=== PATIENT | female | born 1965 | race Caucasian/White ===

== ENCOUNTER → 2019-12-11 10:37 | Outpatient (BNVA) | payer BC, SELFPAY | PROVIDERS: Family Provider Nurse Practitioner Family; PCP Nurse Practitioner Family; Visit Provider Internal Medicine Rheumatology | DX: M31.6 Other giant cell arteritis (principal); Z79.899 Other long term (current) drug therapy; M79.7 Fibromyalgia | CPT/HCPCS: 99214 ==

== ENCOUNTER → 2020-02-13 08:15 | Outpatient (BNVA) | payer BC, SELFPAY | PROVIDERS: Family Provider Nurse Practitioner Family; PCP Nurse Practitioner Family; Visit Provider Internal Medicine Rheumatology | DX: R53.83 Other fatigue (principal); Z79.899 Other long term (current) drug therapy | CPT/HCPCS: 80061; 80076; 82565; 84439; 84443; 85025; 85651; 86140 ==

== ENCOUNTER → 2020-05-06 09:25 | Outpatient (BNVA) | payer BC, SELFPAY | PROVIDERS: Family Provider Nurse Practitioner Family; PCP Nurse Practitioner Family; Visit Provider Nurse Practitioner Family | DX: Z79.899 Other long term (current) drug therapy (principal); E03.9 Hypothyroidism, unspecified; R53.83 Other fatigue; H66.90 Otitis media, unspecified, unspecified ear; J32.9 Chronic sinusitis, unspecified; R05 Cough; Z12.31 Encounter for screening mammogram for malignant neoplasm of breast; E78.2 Mixed hyperlipidemia | CPT/HCPCS: 80053; 80061; 81001; 82306; 83036; 84443; 85025; 85651; 86140 ==

== ENCOUNTER → 2020-06-03 11:17 | Outpatient (BNVA) | payer BC, SELFPAY | PROVIDERS: Family Provider Nurse Practitioner Family; PCP Nurse Practitioner Family; Visit Provider Internal Medicine Rheumatology | DX: M31.5 Giant cell arteritis with polymyalgia rheumatica (principal); Z79.899 Other long term (current) drug therapy; H26.9 Unspecified cataract; M79.7 Fibromyalgia; J32.9 Chronic sinusitis, unspecified; R53.82 Chronic fatigue, unspecified; Z87.891 Personal history of nicotine dependence | CPT/HCPCS: 99214 ==

== ENCOUNTER 2020-06-30 10:03 | Outpatient (CLI) | payer BC, SELFPAY ==
--- NOTE | 2020-06-30 10:30 | MM_ITS ---
WS: [id number] BILATERAL DIGITAL SCREENING MAMMOGRAPHY WITH CAD CLINICAL INFORMATION: need for annual exam HISTORY: Screening mammogram. No current complaints. COMPARISON: November 28, 2018 TECHNIQUE: Bilateral CC and MLO views. FINDINGS: Scattered fibroglandular densities bilaterally. No suspicious focal mass, asymmetry, calcifications, or architectural distortion. No evidence of malignancy. Dense tissue subareolar left breast unchanged . MM/[place] [id number] IMPRESSION: BI-RADS: 2-Benign FOLLOW UP: 1 Year Follow-up Recommend return to annual screening mammography.
== END 2020-06-30 10:04 | disposition home or self-care (01) ==
LOC: RADSHAW 10:07
PROVIDERS: PCP Nurse Practitioner Family; Visit Provider Nurse Practitioner Family
DX: Z12.31 Encounter for screening mammogram for malignant neoplasm of breast (principal)
CPT/HCPCS: 77067

== ENCOUNTER → 2020-08-03 10:10 | Outpatient (BNVA) | payer BC, SELFPAY | PROVIDERS: PCP Nurse Practitioner Family; Visit Provider Nurse Practitioner Family | DX: Z11.59 Encounter for screening for other viral diseases (principal) | CPT/HCPCS: 87635 ==

== ENCOUNTER → 2020-09-28 10:37 | Outpatient (BNVA) | payer BC, SELFPAY | PROVIDERS: PCP Nurse Practitioner Family; Visit Provider Nurse Practitioner Family | DX: Z79.899 Other long term (current) drug therapy (principal) | CPT/HCPCS: 80076; 82565; 85025; 85651; 86140 ==

== ENCOUNTER → 2020-10-08 10:04 | Outpatient (BNVA) | payer BC, SELFPAY | PROVIDERS: PCP Nurse Practitioner Family; Visit Provider Internal Medicine Rheumatology | DX: M31.5 Giant cell arteritis with polymyalgia rheumatica (principal); M79.7 Fibromyalgia; Z79.899 Other long term (current) drug therapy; M54.31 Sciatica, right side; H26.9 Unspecified cataract; Z87.891 Personal history of nicotine dependence | CPT/HCPCS: 99214 ==

== ENCOUNTER 2020-11-25 11:42 | Outpatient (CLI) | payer BC, SELFPAY ==
--- NOTE | 2020-11-25 11:49 | XR_ITS ---
WS: [id number] LATERAL LUMBAR SPINE: 3 view. Lateral radiographs are performed in upright neutral, flexion and extension to the patient's toleranc e. HISTORY: S39.012A - Strain of muscle, fascia and tendon of lower back, initial encounter COMPARISON: None available. Normal posterior alignment. Mild osteopenia. Disc spaces are preserved. No fracture. Mild facet joint arthritis at L4-5 and L5-S1. With flexion and extension no lumbar spine instability. XR/XR lumbar spine min 4V [id number] IMPRESSION: No lumbar spine instability.
== END 2020-11-25 11:43 | disposition home or self-care (01) ==
LOC: RADWPI 11:46
PROVIDERS: PCP Nurse Practitioner Family; Visit Provider Nurse Practitioner Family
DX: S39.012A Strain of muscle, fascia and tendon of lower back, initial encounter (principal); X58.XXXA Exposure to other specified factors, initial encounter
CPT/HCPCS: 72114

== ENCOUNTER 2020-12-01 06:00 | Outpatient (RCR) | payer BC, SELFPAY | END 2020-12-27 23:59 | disposition home or self-care (01) | LOC: WPT 06:00 | PROVIDERS: PCP Nurse Practitioner Family; Referring Provider Nurse Practitioner Family; Visit Provider Nurse Practitioner Family | DX: M54.5 Low back pain (principal) | CPT/HCPCS: 97110; 97161; G0283 ==

== ENCOUNTER 2020-12-04 09:35 | Emergency (ER) | payer BC, SELFPAY ==
[2020-12-04 09:41] VITALS: BP 126/75; PULSE 89; RESP 18; TEMP 36.1; O2SAT 100; BMI 30.2
[2020-12-04 09:46] VITALS: O2SAT 98
--- NOTE | 2020-12-04 09:49 | CT_ITS ---
WS: [id number] CT CERVICAL SPINE HISTORY: trauma TECHNIQUE: Contiguous 2.5 mm axial imaging performed through the entire cervical spine. Sagittal and coronal reformats also performed. All CT scans at [facility] use at least one of these do se optimization techniques: automated exposure control; mA and/or kV adjustment per patient size (inc ludes targeted exams where dose is matched to clinical indication); or iterative reconstruction. DLP: 456.27 mGy.cm COMPARISON: None available. Normal cervical alignment. Craniocervical junction, atlantodental interval and C1-C2 alignment is nor mal. Mild disc space narrowing at C5-6. No significant stenosis or acute disc herniations. There are several foci of air in the soft tissues of the RIGHT neck along the inferior margin of the RIGHT submandibular gland. Air is closely associated but does appear separate from the carotid artery . There is no soft tissue hematoma or active bleeding identified. Enlarged LEFT thyroid the thyroid nodule measuring 2.5 x 1.8 cm. Visualized upper lungs are clear. CT/CT cervical spin wo con* [id number] IMPRESSION: 1. No cervical spine fracture. 2. Numerous foci of air in the soft tissues adjacent to the inferior RIGHT sub mandibular gland likely from the recent injury. No active extravasation or torres tid injury confirmed. No compromise of the airway.
--- NOTE | 2020-12-04 09:49 | CT_ITS ---
WS: [id number] CT CHEST, ABDOMEN AND PELVIS WITH IV CONTRAST. HISTORY: trauma TECHNIQUE: Contiguous 5 mm axial imaging performed through the chest, abdomen and pelvis with IV cont rast, oral contrast has been provided. Coronal and sagittal reformats chest. Coronal and sagittal ref ormats through the abdomen and pelvis. All CT scans at [facility] use at least one of the se dose optimization techniques: automated exposure control; mA and/or kV adjustment per patient size (includes targeted exams where dose is matched to clinical indication); or iterative reconstruction. CONTRAST: Omnipaque 300; 95 mL IV. DLP: 1562.0 mGy.cm COMPARISON: None available. Chest CT: Lungs are clear. No pulmonary contusion or nodules. No laceration or pneumothorax. Normal-s ized thoracic aorta and pulmonary artery. No aortic dissection or injury. No mediastinal or hilar inj ury or hematoma. No mediastinal air. Normal esophagus. Clavicles are intact. No thoracic spine fractu re or injury. Nondisplaced posterior RIGHT T11 remote rib fracture with partial healing. No acute rib fracture. No soft tissue injury. Normal heart with no pericardial effusion. No pleural effusion. Abdomen CT: Prior cholecystectomy. Liver, spleen, pancreas, adrenals and kidneys are negative. No mes enteric hematoma. Visualized GI tract are tract is negative. No obstruction. No adenopathy or fluid. There is a small amount of stranding in the soft tissues over the LEFT abdominal wall which may be fr om the trauma or subcutaneous injection sites. Prior appendectomy. Pelvic CT: No free fluid in the pelvis. Urinary bladder is well distended. No adenopathy. Prior hyste rectomy. CT/CT chest abd pel w con* IMPRESSION: 1. No pulmonary contusion or pneumothorax. 2. Small amount of induration in the LEFT abdomen subcutaneous soft tissue. T his may be from the recent trauma or prior injection sites. 3. No mesenteric injury hematoma identified. 4. No acute fractures. 5. No visceral organ injury.
--- NOTE | 2020-12-04 09:49 | CT_ITS ---
WS: [id number] CT HEAD NONCONTRAST HISTORY: trauma TECHNIQUE: Contiguous axial imaging performed through the brain in 2.5 mm imaging. Bone and soft tiss ue windows. Sagittal and coronal reformats reviewed. All CT scans at [facility] use at ast one of these dose optimization techniques: automated exposure control; mA and/or kV adjustment pe r patient size (includes targeted exams where dose is matched to clinical indication); or iterative r econstruction. DLP: 722.83 mGy.cm COMPARISON: None available. No acute intracranial hemorrhage, midline shift or mass effect. No atrophy or prior infarcts or herniation. Ventricles: Normal size with no hydrocephalus. Paranasal sinuses: As visualized are clear. Mastoid air cells: Well pneumatized. Calvarium and scalp: Skull is intact with no soft tissue edema or swelling. CT/CT head wo con* [id number] IMPRESSION: Negative head CT.
--- NOTE | 2020-12-04 09:50 | ECG_ITS ---
[facility] Test Date: 2020-12-04 Pat Name: Rain Caballero Department: Room: Gender: Female Sole Dyer: : 1965 Requested By: Gabriel Mccoy Order Number: [id number] Yovany MD: Eliseo Triplett M.D. Measurements Intervals [place] Rate: 68 P: 51 CA: 153 QRS: 37 QRSD: 88 T: 49 QT: 377 QTc: 403 Interpretive Statements SINUS RHYTHM No previous ECG available for comparison Electronically Signed On 12-05-2020 10:58:45 [employer] INTELLIGENCE OFFICER by Eliseo Triplett M.D. [id number]
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
--- NOTE | 2020-12-04 09:58 | XR_ITS ---
WS: [id number] Right forearm, AP and lateral views, 12/04/2020 Clinical Data: trauma Comparison: None. Findings: No fractures or dislocations are seen. The soft tissues are normal. The visualized left wrist and elb ow show no obvious abnormalities. There is an intravenous catheter overlying the distal right forearm. XR/XR forearm RT 2V [id number] Impression: Negative for fracture.
--- NOTE | 2020-12-04 09:58 | XR_ITS ---
WS: [id number] Right arm and humerus, 3 views, 12/04/2020 Clinical Data: trauma Comparison: None. Findings: No fractures or dislocations are seen. The shaft of the humerus is intact. The soft tissues are norm al. XR/[place] [id number] Impression: Negative right arm and humerus.
[2020-12-04] MEDS: morphine 4 mg/mL SDV 1 mL 2 MG IVP (10:02)
[2020-12-04] MEDS: ondansetron 2 mg/ML SDV 2 mL 4 MG IVP (10:02)
[2020-12-04 10:03] VITALS: BP 112/85; PULSE 74; RESP 21; O2SAT 100
--- NOTE | 2020-12-04 10:06 | PC.NURSE ---
pt to ct scan by stretcher with tech
[2020-12-04 10:09] LABS: Basophils # 0.1 10^3/uL (0.0-0.1); Basophils % 0.8 %; Eosinophils # 0.3 10^3/uL (0.0-0.8); Eosinophils % 3.9 %; Hemoglobin 13.7 g/dL (11.5-15.3); Lymphocytes # 1.6 10^3/uL (0.8-4.8); Lymphocytes % 25.2 %; Mean Corpuscular HGB Conc 34.3 g/dL (30.0-36.0); Mean Corpuscular Hemoglobin 31.1 pg (28.0-34.0); Mean Corpuscular Volume 90.9 fL (81-99); Mean Platelet Volume 11.5 fL (7.4-10.4); Monocytes # 0.5 10^3/uL (0.2-0.9); Monocytes % 7.8 %; Neutrophils # 3.97 10^3/uL (1.8-7.7); Neutrophils % 62.1 %; Nucleated Red Blood Cells % 0 %; Platelet Count 228 10^3/cmm (130-400); White Blood Count 6.4 10^3/uL (4.0-10.0)
[2020-12-04] MEDS: iohexol 300 mg/mL 100 mL Btl IV (10:17)
[2020-12-04 10:25] LABS: Alanine Aminotransferase 27 U/L (0-33); Albumin Level 4.4 g/dL (3.5-5.2); Alkaline Phosphatase 51 IU/L (35-105); Aspartate Amino Transferase 23 U/L (0-32); Blood Urea Nitrogen 20 mg/dL (6-20); Calcium 9.5 mg/dL (8.5-10.5); Carbon Dioxide 25 mmol/L (22-29); Chloride 106 mmol/L (98-107); Globulin 2.7 g/dL (1.3-4.6); Glucose 96 mg/dL (65-115); Osmolality Calculated 292 mOsm/kg (285-295); Sodium 140 mmol/L (136-145); Total Bilirubin 0.3 mg/dL (0.15-1.2); Total Protein 7.1 g/dL (6.6-8.7)
[2020-12-04] MEDS: tetanus-dipt-pertussis 0.5 mL SDV IM (10:57)
[2020-12-04 11:22] VITALS: BP 121/61; PULSE 64; RESP 17; O2SAT 99
[2020-12-04 11:31] LABS: Add Urine Microscopic? NO
[2020-12-04 11:56] LABS: Bilirubin Urine Neg (Negative); Blood Urine Neg (Negative); Glucose Urine UA Norm (Normal); Ketones Urine Negative (Negative); Leukocyte Esterase Urine Negative (Negative); Nitrate Urine Negative (Negative); Protein Urine Neg (Negative); Specific Gravity, Urine 1.005 (1.005-1.030); Urine Appearance Clear (CLEAR); Urine Color Yellow (Yellow); Urobilinogen Urine Norm (Negative); pH Urine 7 (5-7)
[2020-12-04 12:25] VITALS: BP 120/61; PULSE 65; RESP 16; O2SAT 99
[2020-12-04] MEDS: HYDROcodone-acetaminophen 5-325 mg Tablet 1 TAB PO (12:37)
== END 2020-12-04 12:35 | disposition home or self-care (01) ==
PROVIDERS: Emergency Provider Family Medicine; PCP Nurse Practitioner Family
DX: S09.93XA Unspecified injury of face, initial encounter (principal); S39.93XA Unspecified injury of pelvis, initial encounter; W55.29XA Other contact with cow, initial encounter; E78.2 Mixed hyperlipidemia; Z87.891 Personal history of nicotine dependence; Z23 Encounter for immunization
CPT/HCPCS: 12345; 70450; 71260; 72125; 73060; 73090; 74177; 80053; 81003; 83605; 85025; 86850; 86900; 90471; 90715; 93005; 96374; 96375; 99283; 99284; 99291; J2270; J2405; Q9967

== ENCOUNTER 2020-12-25 16:18 | Outpatient (CLI) | payer BC, SELFPAY ==
--- NOTE | 2020-12-25 16:45 | MR_ITS ---
WS: [id number] MRI LUMBAR SPINE NONCONTRAST TECHNIQUE: Sagittal T1, T2 and STIR imaging. Axial T1 and T2 imaging. CLINICAL INFORMATION: M54.10 - Radiculopathy, site unspecified COMPARISON: None. FINDINGS: Mild lumbar curve. No acute compression. No high-grade central canal stenosis. A few incidental Schmo rl's nodes in the lower thoracic and upper lumbar spine. L1-L2: Normal. L2-L3: No significant disc bulging. Spinal canal and foramen are patent. Mild facet arthropathy. L3-L4: No significant disc bulging. Mild facet arthropathy. Spinal canal and foramen are patent. L4-L5: Mild annular bulging with slight narrowing of the left subarticular recess. Slight encroachmen t traversing left L5 nerve root. Mild left and no right foraminal narrowing. Mild facet arthropathy. L5-S1: Mild annular bulging with a tiny annular fissure. Tiny shallow central protrusion. Slight effa cement of ventral thecal sac. Spinal canal and foramen are patent. Mild facet arthropathy. Visualized pelvic bony structures: Normal. Paravertebral soft tissues: Normal. 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 MR/MR lumbar spine wo con* [id number] IMPRESSION: 1. Mild lumbar curve. No acute compression. No high-grade central canal stenos is. 2. Mild annular bulging L4-5 with slight narrowing of the left subarticular re cess and encroachment traversing left L5 nerve root. Mild left L4-5 foraminal n arrowing. 3. Tiny central disc protrusion L5-S1 with a tiny annular fissure. Spinal christine l and foramen are patent. 4. Mild facet arthropathy L3-L5.
== END 2020-12-25 16:19 | disposition home or self-care (01) ==
PROVIDERS: PCP Nurse Practitioner Family; Visit Provider Nurse Practitioner Family
DX: M54.10 Radiculopathy, site unspecified (principal); M47.816 Spondylosis without myelopathy or radiculopathy, lumbar region; M51.27 Other intervertebral disc displacement, lumbosacral region
CPT/HCPCS: 72148

== ENCOUNTER 2020-12-28 06:00 | Outpatient (RCR) | payer BC, SELFPAY | END 2021-01-27 23:59 | disposition home or self-care (01) | LOC: WPT 06:00 | PROVIDERS: PCP Nurse Practitioner Family; Referring Provider Nurse Practitioner Family; Visit Provider Nurse Practitioner Family | DX: M54.10 Radiculopathy, site unspecified (principal); M47.816 Spondylosis without myelopathy or radiculopathy, lumbar region | CPT/HCPCS: 97110; G0283 ==

== ENCOUNTER → 2021-01-13 11:48 | Outpatient (BNVA) | payer BC, SELFPAY | PROVIDERS: PCP Nurse Practitioner Family; Visit Provider Family Medicine | DX: M19.90 Unspecified osteoarthritis, unspecified site (principal); R60.9 Edema, unspecified; Z87.39 Personal history of other diseases of the musculoskeletal system and connective tissue; M54.10 Radiculopathy, site unspecified | CPT/HCPCS: 36415; 85651; 86160; 86162; 86235; 86255; 86376 ==

== ENCOUNTER → 2021-01-26 11:37 | Outpatient (BNVA) | payer BC, SELFPAY | PROVIDERS: PCP Nurse Practitioner Family; Visit Provider Family Medicine | DX: E03.8 Other specified hypothyroidism (principal); E03.9 Hypothyroidism, unspecified; M19.90 Unspecified osteoarthritis, unspecified site; M54.10 Radiculopathy, site unspecified | CPT/HCPCS: 84443; 86431 ==

== ENCOUNTER → 2021-03-22 09:37 | Outpatient (BNVA) | payer BC, SELFPAY | PROVIDERS: PCP Nurse Practitioner Family; Visit Provider Internal Medicine Rheumatology | DX: M31.5 Giant cell arteritis with polymyalgia rheumatica (principal); M79.7 Fibromyalgia; Z79.899 Other long term (current) drug therapy; H02.409 Unspecified ptosis of unspecified eyelid; Z87.891 Personal history of nicotine dependence | CPT/HCPCS: 99214 ==

== ENCOUNTER → 2021-03-31 15:00 | Outpatient (BNVA) | payer BC, SELFPAY | PROVIDERS: PCP Nurse Practitioner Family; Referring Provider Family Medicine; Visit Provider Specialist | DX: M65.30 Trigger finger, unspecified finger (principal) | CPT/HCPCS: 73130 ==

== ENCOUNTER 2021-04-07 14:09 | Outpatient (CLI) | payer BC, SELFPAY ==
[2021-04-07 15:46] LABS: Basophils # 0.1 10^3/uL (0.0-0.1); Eosinophils # 0.2 10^3/uL (0.0-0.8); Eosinophils % 3.4 %; Hematocrit 41.5 % (37.0-47.0); Hemoglobin 14.3 g/dL (11.5-15.3); Lymphocytes % 41.1 %; Mean Corpuscular HGB Conc 34.5 g/dL (30.0-36.0); Mean Corpuscular Hemoglobin 30.4 pg (28.0-34.0); Mean Corpuscular Volume 88.1 fL (81-99); Mean Platelet Volume 12.3 fL (7.4-10.4); Monocytes # 0.5 10^3/uL (0.2-0.9); Monocytes % 10.3 %; Neutrophils # 2.18 10^3/uL (1.8-7.7); Neutrophils % 44.2 %; Nucleated Red Blood Cells % 0 %; Platelet Count 234 10^3/cmm (130-400); Red Blood Count 4.71 10^6/uL (4.1-5.3); White Blood Count 4.9 10^3/uL (4.0-10.0)
[2021-04-07 15:55] LABS: Alanine Aminotransferase 42 U/L (0-33); Albumin Level 4.6 g/dL (3.5-5.2); Alkaline Phosphatase 62 IU/L (35-105); Aspartate Amino Transferase 29 U/L (0-32); C Reactive Protein 0.3 mg/L (0.0-4.9); Creatine Phosphokinase 65 U/L (26-192); Globulin 3.2 g/dL (1.3-4.6); Total Bilirubin 0.3 mg/dL (0.15-1.2); Total Protein 7.8 g/dL (6.6-8.7)
[2021-04-07 20:43] LABS: Free T4 Free Thyroxine 1.42 ng/dL (0.82-1.77)
[2021-04-08 12:53] LABS: Aldolase 3.7 U/L (< OR = 8.1)
[2021-04-18 00:03] LABS: Acetylcholine Receptor Binding <0.30 nmol/L
== END 2021-04-07 14:10 | disposition home or self-care (01) ==
LOC: LAB 14:26
PROVIDERS: PCP Nurse Practitioner Family; Visit Provider Internal Medicine Rheumatology
DX: M31.5 Giant cell arteritis with polymyalgia rheumatica (principal); M62.89 Other specified disorders of muscle; Z79.899 Other long term (current) drug therapy
CPT/HCPCS: 36415; 80076; 82085; 82550; 82565; 83519; 84439; 85025; 86140

== ENCOUNTER → 2021-04-09 15:49 | Outpatient (BNVA) | payer BC, SELFPAY | PROVIDERS: PCP Nurse Practitioner Family; Visit Provider Specialist | DX: Z20.822 Contact with and (suspected) exposure to COVID-19 (principal) | CPT/HCPCS: 87635 ==

== ENCOUNTER 2021-04-13 05:24 | Day surgery (SDC) | payer BC, SELFPAY ==
[2021-04-12 10:47] VITALS: BMI 29.7
[2021-04-13 06:30] VITALS: BP 120/75; PULSE 74; RESP 18; TEMP 36.2; O2SAT 99
[2021-04-13] MEDS: acetaminophen 1,000 MG/100 ML PIGGYBACK 400 MG IV (06:42)
[2021-04-13] MEDS: sodium chloride 0.9% 1,000 ML 30 ML IV (06:43)
--- NOTE | 2021-04-13 06:46 | P.HPUD_ITS ---
Surgery/Procedure H&P Update DATE OF PROCEDURE: April 13, 2021 DATE H&P PERFORMED: 03/31/21 H&P UPDATE INFORMATION: I have reviewed H&P completed within last 30 days, I have examined patient prior to procedure, Changes to prior documentation as noted here and H&P is in [facility] EMR on date indicated CHANGES TO PREVIOUS DOCUMENTATION: Hydrocodone for back issues. PREOP DIAGNOSIS: Right Ring Trigger Finger PRIMARY INDICATION FOR PROCEDURE: Same PLANNED PROCEDURE: Operation Date: 04/13/21 07:00 Proposed Procedures p Trigger Finger Release [id number] M65.30(Right) - Nancy Delgado MD Related Problem List Diagnoses (1) Acquired trigger finger of right ring finger:
[2021-04-13 07:00] LABS: Anion Gap 11.9 (5-19); Blood Urea Nitrogen 17 mg/dL (6-20); Calcium 8.8 mg/dL (8.5-10.5); Carbon Dioxide 26 mmol/L (22-29); Chloride 108 mmol/L (98-107); Glomerular Filtration Rate 87.5 mL/min (90-130); Glucose 98 mg/dL (65-115); Osmolality Calculated 296 mOsm/kg (285-295); Potassium 3.9 mmol/L (3.5-5.1); Sodium 142 mmol/L (136-145)
--- NOTE | 2021-04-13 07:00 | ANES.PREANE2 ---
Pre-Anesthetic Assessment Pre-Anesthetic Assessment: Height/Weight: Height 1.52 m Weight 68.946 kg Temp Pulse Resp BP Pulse Ox 97.1 F L 74 18 120/75 99 04/13/21 06:30 04/13/21 06:30 04/13/21 06:30 04/13/21 06:30 04/13/21 06:30 Preop Diagnosis: Right Ring Trigger Finger Proposed Procedure: Operation Date: 04/13/21 07:00 Proposed Procedures p Trigger Finger Release [id number] M65.30(Right) - Nancy Delgado MD Was Beta Antwon taken within 24 hours: N/A Was Clonidine taken within 24 hours: N/A Last intake: Intake Last Liquid Date 04/12/21 Last Liquid Time 22:30 Last Solid Date 04/12/21 Last Solid Time 22:30 Social: Social History: No alcohol and No tobacco Exam: Pre-Anes Outpt Exam: alert, oriented x 3, clear to auscultation bilaterally and regular rate & rhythm Airway: Submandibular: WNL Cervical ROM: WNL MP: 2 Dentition: Full CV/HEM: CV/HEM: HTN GI: GI: GERD Metabolic: Metabolic: Thyroid Comments: Temporal arteritis, chronic steroid Musc/skel: Musc/skel: Lower Back Pain Anesthetic Plan: ASA status: 3 Anesthesia: MAC and Regional (specify below) (Harsha Tobar) Risk of > 500 ml blood loss (7ml/kg in children): No Meds/Allergies Current Medications: Current Medications Generic Name Dose Route Start Last Admin Trade Name Freq PRN Reason Stop Dose Admin Sodium Chloride 1,000 mls @ 30 ml s/hr 04/13/21 06:15 04/13/21 06:43 Sodium Chloride 0.9% IV 04/14/21 06:14 30 mls/hr .Q24H CHRISTOPHER Administration PFSH Anesthesia PFSH: Medical History Allergic rhinitis Anxiety Back pain with right-sided radiculopathy Cataracts, bilateral Drooping eyelid Fatigue Fibromyalgia Giant cell arteritis with polymyalgia rheumatica High risk medication use Hypothyroid Hypothyroidism Immunization counseling Immunosuppression detention current use of diuretic Medication management Mixed hyperlipidemia Other assisted (current) drug therapy Otitis media Plaque psoriasis Sinusitis Vitamin D deficiency, unspecified Surgical History History of appendectomy History of hysterectomy including cervix History of hysterectomy with bilateral oophorectomy Hx of cholecystectomy Family History Other CAD (coronary artery disease) Cancer Diabetes Hypertension Lung disease Rheumatoid arthritis Stroke Denies family history of Chronic kidney disease (CKD) Systemic lupus erythematosus (SLE) in adult Social History Smoking and tobacco status: former smoker Alcohol intake: unknown Lives independently: No Household members: spouse Marital status: Single History of recent travel: No Data Anesthesia CBC & Chem 7: 04/13/21 06:25 Other Labs: Laboratory Results - last 48 hr 04/13/21 06:25 Sodium 142 Potassium 3.9 Carbon Dioxide 26 Anion Gap 11.9 BUN 17 Creatinine 0.7 Glucose 98 Calcium 8.8 Cardiac Studies: No Data to Display
[2021-04-13 07:41] VITALS: BP 130/65; PULSE 75; RESP 16; TEMP 36.3; O2SAT 99
--- NOTE | 2021-04-13 07:41 | PM.OP ---
Operative Report Date of procedure: April 13, 2021 Pre-op Diagnosis: Right Ring Trigger Finger Post-op diagnosis: same Post-op Findings: Thickened synovium with ring finger triggering Procedure Done: Right ring trigger finger release Implants: None Specimens removed/disposition: None Pathology: none sent Surgeon: Nancy Delgado Cnc Wood Lathe Operator: None Anesthesia: MAC (With [place] block, ASA 2) Estimated blood loss (mL): 2 Tourniquet time (min): 24 IV fluids (mL): 300 Urine output (mL): 0 Urine output: No Aleman Complications: None Findings: Thickened synovium and A1 marj Condition: stable Disposition: PACU (Then to same-day surgery for discharge home) Brief History: This 55-year-old woman presented with complaints of pain in her right palm at the base of the ring finger. She also describes triggering of the ring finger digit with range of motion. After discussion, the patient wished to proceed with operative intervention in the form of a trigger finger release. Risks and complications were discussed with her and consents were signed. Procedure: Patient was brought to the operating theater. She was placed on the operating room table. A [place] block was administered without difficulty. Patient tolerated it well. The patient was given Ancef 2 g prophylactically. A tourniquet was placed high on the arm and was elevated for the Harsha block. This followed exsanguination of the arm. Tourniquet time was 24 minutes. Surgical pause was performed prior to commencement of the surgical procedure. At the time of the surgical pause we identified the site and side of surgery. We also identified the patient's identity and appropriate administration of IV antibiotics. Following the surgical pause, an incision was made along the distal palmar crease beneath the ring finger. Dissection continued through the skin to the subcutaneous tissues using a scalpel. Blunt dissection was then utilized to spread soft tissues and allow access to the A1 marj. The A1 marj was identified. It was then incised longitudinally and sharply using a knife. This was accomplished without difficulty and atraumatically. Once the A1 marj was released, tendons were brought up out of the wound and evaluated. There were no gross masses on the tendons. Tendons were returned to normal position. We then irrigated the wound and subsequently closed it with 3-0 nylon with an interrupted mattress type suture. Following closure of the wound, the wound was injected with 1% lidocaine plain into the subcutaneous tissues as a local anesthetic. Sterile dressing was then placed consisting of Tegaderm, fluffed fluffs, sterile soft roll, and an Hammad wrap. The patient was returned to recovery in satisfactory condition. She will be discharged home to follow-up with me in the office. There were no complications and no specimens. Associated Problem List Diagnoses (1) Acquired trigger finger of right ring finger:
--- NOTE | 2021-04-13 07:44 | SUR.PHASEI ---
AWAKE ALERT TALKATIVE PT DENIES PAIN NAUSEA, VSS IV PATENT RT ARM DRESSING D/I FINGERS PINK WARM WITH CAP REFILL LESS THAN 3 SECONDS.
[2021-04-13 07:46] VITALS: BP 103/78; PULSE 67; RESP 18; O2SAT 99
[2021-04-13 07:50] VITALS: BP 141/76; PULSE 70; RESP 18; TEMP 36.3; O2SAT 99
[2021-04-13 08:03] VITALS: BP 146/79; PULSE 68; RESP 18; TEMP 36.1; O2SAT 99
[2021-04-13 08:20] VITALS: BP 150/78; PULSE 66; RESP 18; O2SAT 98
--- NOTE | 2021-04-13 11:35 | ANE.PACU2 ---
Inpatient post-anesthesia follow up: Airway intact: Yes Vital signs: Temperature 97 F Pulse Rate 66 Respiratory Rate 18 Blood Pressure 150/78 Pulse Oximetry 98 Oxygen Delivery Me thod Room Air Oxygen Flow Rate Fraction of Inspir ed Oxygen Hydration adequate: Yes Nausea and vomiting: No Pain level: 1 Mental status: Baseline
== END 2021-04-13 08:35 | disposition home or self-care (01) ==
PROVIDERS: Anesthesiology; PCP Nurse Practitioner Family; Visit Provider Specialist
PROC: (CPT 26055; principal; 2021-04-13 07:00)
DX: M65.341 Trigger finger, right ring finger (principal); I10 Essential (primary) hypertension; K21.9 Gastro-esophageal reflux disease without esophagitis; F41.9 Anxiety disorder, unspecified; M79.7 Fibromyalgia; E03.9 Hypothyroidism, unspecified; E78.5 Hyperlipidemia, unspecified; E55.9 Vitamin D deficiency, unspecified; Z82.49 Family history of ischemic heart disease and other diseases of the circulatory system; Z83.3 Family history of diabetes mellitus; Z87.891 Personal history of nicotine dependence; Z79.82 Long term (current) use of aspirin
CPT/HCPCS: 26055; 36415; 80048; 96365; J0690; J2704; J3010; J3490; J7030

== ENCOUNTER 2021-05-20 11:14 | Emergency (ER) | payer BC, SELFPAY ==
[2021-05-20 11:19] VITALS: BP 148/94; PULSE 85; RESP 19; TEMP 37.1; O2SAT 99; BMI 29.7
--- NOTE | 2021-05-20 11:23 | XR_ITS ---
WS: [id number] Right hip, 2 views, 05/20/2021 Clinical Data: hip pain following a fall Comparison: None. Findings: No fractures or dislocations are seen. The right hip joint is intact. The soft tissues are not remark able. The adjacent pelvis is normal. There are surgical clips in the right inguinal area. XR/XR hip RT 2-3V wo/w pel* [id number] Impression: Negative right hip. Tonnis classification: grade 0: normal radiographs
--- NOTE | 2021-05-20 11:23 | XR_ITS ---
WS: [id number] Right ankle, 3 views, 05/20/2021 Clinical Data: dog bite Comparison: None. Findings: No fractures or dislocations are seen. The ankle mortise is normal. The talus and calcaneus are unrem arkable. No soft tissue swelling over the medial or lateral malleolus is seen. XR/XR ankle RT min 3V* [id number] Impression: Negative right ankle.
[2021-05-20 11:32] VITALS: BP 148/94; PULSE 76; RESP 17; O2SAT 99
--- NOTE | 2021-05-20 11:49 | ED_ITS ---
HPI - Animal Bite General: Chief Complaint: Animal Bite Stated Complaint: DOG BITE Time Seen by Provider: 05/20/21 11:23 Source: patient, EMS and RN notes reviewed Mode of arrival: EMS Limitations: no limitations History of Present Illness: HPI narrative: Patient is a 55-year-old female who was brought in by ambulance after being attacked by her neighbors dog. Patient states that the neighbors dog which is a pit bull got out and into the patient's field attacking her dogs. She was able to get the pit bull off her dog and try to oxide back into its own compound when another pit bull grabbed her on her left ankle and pulled her down into the [place] trying to drag her into the compartment. She was able to hold onto the gait and with the help of her daughter was able to escape the grasp of the dog. She had her son called the police and she thinks the police are going to have the dog put down. Her neighbor who is the chief medical officer of the dog also agreed that the dog needs to be killed. She was given 100 mcg of fentanyl on route and the patient states that she is up-to-date on her tetanus vaccine. She is uncertain if the dog is up-to-date on his rabies shots with the dog is in custody. She also complains of right hip pain. MD complaint: animal bite and animal-related injury Onset (ago): hour(s) (1) Animal: dog Description of animal: household pet Mechanism: bite Location - Extremities: Right: ankle Pain description: sharp Context: unprovoked Associated symptoms: Deny bleeding, chills, cough, diaphoresis, erythema, fever(s), headache(s), numbness, rash, short of breath, syncope, weakness or wound drainage Review of Systems General: Reports: 10 or more systems reviewed and unremarkable except in HPI and below Const: Denies: fever(s), chills or diaphoresis Card: Denies: syncope Neuro: Denies: headache(s) PFS ED PFSH: Medical History Allergic rhinitis Anxiety Back pain with right-sided radiculopathy Cataracts, bilateral Drooping eyelid Fatigue Fibromyalgia Giant cell arteritis with polymyalgia rheumatica High risk medication use Hypothyroid Hypothyroidism Immunization counseling 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 Medication management Mixed hyperlipidemia Other mcc (current) drug therapy Otitis media Plaque psoriasis Sinusitis Vitamin D deficiency, unspecified Surgical History History of appendectomy History of hysterectomy including cervix History of hysterectomy with bilateral oophorectomy Hx of cholecystectomy Family History Other CAD (coronary artery disease) Cancer Diabetes Hypertension Lung disease Rheumatoid arthritis Stroke Denies family history of Chronic kidney disease (CKD) Systemic lupus erythematosus (SLE) in adult Social History Smoking and tobacco status: former smoker Alcohol intake: unknown Lives independently: No Household members: spouse Marital status: Single History of recent travel: No Physical Exam Const: COMMON NORMALS: no acute distress, average body habitus, patient oriented x3, no limitations, healthy appearing, alert and well nourished HENMT: COMMON NORMALS: normocephalic, atraumatic and moist oral mucous membranes HEAD & SCALP: normocephalic and atraumatic Eye: COMMON NORMALS: Equal, round and reactive pupils present, EOMs intact bilaterally, conjunctivae normal and no scleral icterus CONJUNCTIVA: Yes conjunctivae normal PUPIL: Yes Equal, round and reactive pupils present Neck/C-Spine: COMMON NORMALS: full ROM, supple, no meningeal signs, no JVD and No carotid bruits Resp: COMMON NORMALS: normal respiratory effort, No retractions, No use of accessory muscles, clear to auscultation bilaterally and percussion normal AUSCULTATION: clear to auscultation bilaterally PERCUSSION: percussion normal Cardio: COMMON NORMALS: no JVD, regular rate, regular rhythm, S1 normal heart sound present, S2 normal heart sound present, No gallops present (Cardio), No clicks present (Cardio), No murmurs present (Cardio), No rub (Cardio) and Peripheral pulses 2+ throughout RATE: regular rate RHYTHM: regular rhythm HEART SOUNDS: S1 normal heart sound present and S2 normal heart sound present PERIPHERAL PULSES: Peripheral pulses 2+ throughout GI: COMMON NORMALS: Normal to inspection, nondistended, normoactive bowel soun ds present, Soft to palpation, non-tender, No hepatosplenomegaly present, no masses and no bruits PALPATION: Yes Soft to palpation and Yes No hepatosplenomegaly present Extremity: COMMON NORMALS: normal to inspection, full ROM, capillary refill normal, no calf tenderness and no pedal edema RIGHT LOWER EXTREMITY: Yes foot & digits Right ankle: Yes inspection (Puncture wound to the anterior ankle and swelling of the ankle), Yes palpation (Tender to palpation over the medial malleolus), Yes ROM (Reduced secondary to pain) and Yes neurovascular exam (Intact) Neuro: COMMON NORMALS: patient oriented x3 SENSORIUM/ORIENTATION: Yes alert MENINGEAL SIGNS: Yes no meningeal signs Skin: COMMON NORMALS: no rashes or lesions noted, no wounds, turgor normal, no jaundice, no petechiae and no mottling GENERAL SKIN EXAM: no rashes or lesions noted, turgor normal and no erythema Course ED course: 0: Spoke with Jaguar and office at the [facility]'s office department. He states that he 3 dogs have been put down and he left to talk to the family to dispose of the dogs. Reevaluation(s): Reevaluation #1: discussed her imaging findings with her. Explained that she has no fracture dislocation of her ankle or hip. She explained to me that the animals have been killed but the bodies of the animals are still in custody. Time: 12:40 Vital Signs: Vital signs: Vital Signs Temperature 98.7 F 05/20/21 11:19 Pulse Rate 73 05/20/21 15:06 Respiratory Rate 18 05/20/21 15:06 Blood Pressure 111/81 05/20/21 15:06 Pulse Oximetry 98 05/20/21 15:06 MDM - Animal Bite MDM Narrative: Medical decision making narrative: 55-year-old female who was attacked by her neighbors dog and sustained a puncture wound to her right ankle. No bony injuries. The dogs were no up-to-date on their rabies vaccinations, however the dogs apparently always in the yard. The dogs were killed after the attack today and because of the uncertainty as to how the dogs have been disposed and if the dogs are available for testing the patient opted to receive rabies postexposure prophylaxis with the rabies immunoglobulin and rabies vaccination. She was given the first dose in the emergency department today with no adverse reactions. She will complete the series and she has been giving the schedule, the dates and where she needs to go to get the shots. She is discharged home with a prescription for Augmentin. Medical Records: Attestation: I reviewed the patient's medical records. Imaging Data^: Xray Ortho: Attestation: I personally reviewed and interpreted this imaging study as follows: Radiologist's impression: [address], [place] [address]FUgp ReportSigned Patient: Rain Caballero #: [id number]: [id number]#:[id number]/Sex: 55 / FADM Date: 05/20/21Loc: ERRoom/Bed:Attending Dr: Ordering Provider/Ordering MD: Delmis Larry MD, [facility] [place] Date of Service: 05/20/21 Procedure(s): XR ankle RT min 3V* [id number] Accession Number(s): [id number] Report Number: [id number] WS: [id number] Right ankle, 3 views, 05/20/2021 Clinical Data: dog bite Comparison: None. Findings: No fractures or dislocations are seen. The ankle mortise is normal. The talus and calcaneus are unremarkable. No soft tissue swelling over the medial or lateral malleolus is seen. XR/XR ankle RT min 3V* [id number] Impression: Negative right ankle. Dictated By:Emma Schmitz MDSigned By:Emma Schmitz MDSigned Date/Time:05/20/21 1143DD/ [address] [address] [address], [place] [address]OLuh ReportSigned Patient: Rain Caballero #: [id number]: [id number]#:[id number]/Sex: 55 / FADM Date: 05/20/21Loc: ERRoom/Bed :Attending Dr: Ordering Provider/Ordering MD: Delmis Larry MD, [facility] [place] Date of Service: 05/20/21 Procedure(s): XR hip RT 2-3V wo/w pel* [id number] Accession Number(s): [id number] Report Number: [id number] WS: [id number] Right hip, 2 views, 05/20/2021 Clinical Data: hip pain following a fall Comparison: None. Findings: No fractures or dislocations are seen. The right hip joint is intact. The soft tissues are not remarkable. The adjacent pelvis is normal. There are surgical clips in the right inguinal area. XR/XR hip RT 2-3V wo/w pel* [id number] Impression: Negative right hip. Tonnis classification: grade 0: normal radiographs Dictated By:Emma Schmitz MDSigned By:Emma Schmitz MDSigned Date/Time:05/20/21 1145DD/ 1143 Discharge Plan Discharge Patient Disposition: Home Clinical Impression: Dog bite of ankle Qualifiers: Encounter type: initial encounter Laterality: right Qualified Code(s): S91.051A - Open bite, right ankle, initial encounter Condition: Stable Prescriptions: New Augmentin 875-125 mg tablet 1 tab PO BID Qty: 14 RF: 0 Continued docusate sodium [Colace] 100 mg capsule 100 mg PO PRN RF: 0 aspirin [Adult Aspirin Regimen] 81 mg tablet,delayed release (DR/EC) 81 mg PO DAILY@20 RF: 0 cholecalciferol (vitamin D3) 50 mcg (2,000 unit) capsule 2,000 unit PO DAILY@20 RF: 0 cyclobenzaprine 5 mg tablet 5 mg PO BID PRN (Reason: muscle spasm) 90 Days Qty: 180 RF: 0 omeprazole 40 mg capsule,delayed release(DR/EC) 40 mg PO DAILY@20 Qty: 30 RF: 3 Actemra 162 mg/0.9 mL syringe 162 mg SUBCUT .q7DAYS Qty: 4 RF: 2 diclofenac sodium 1 % gel 2 g topical QID Qty: 100 RF: 2 furosemide 20 mg tablet 20 mg PO DAILY@07 Qty: 30 RF: 2 paroxetine HCl [Paxil] 10 mg tablet 10 mg PO DAILY@20 Qty: 30 RF: 2 hydrocodone-acetaminophen 5-325 mg tablet 1 tab PO BID PRN (Reason: pain) 30 Days Qty: 60 RF: 0 Xesk-Epcb-Tdxpm (ox-MX-spqela) 400-2,000 mcg Tablet 1 tab PO DAILY RF: 0 potassium chloride 10 mEq capsule, extended release 10 meq PO DAILY@07 RF: 0 gabapentin 300 mg capsule See Rx Instructions .ROUTE .COMPLEX RF: 0 Xyzal 5 mg Tablet 5 mg PO DAILY RF: 0 Probiotic 15 billion cell Capsule, Sprinkle 1 cap PO DAILY RF: 0 levothyroxine 25 mcg tablet 25 mcg PO DAILY RF: 0 Discharge Orders: Discharge ED (Routine); Ordered 05/20/21 Ordered By: Delmis Larry Referrals: YAHIR Martinez, TALENT ACQUISITION OPERATIONS MANAGER [Primary Care Provider] - 1-3 days Discharge Diet: Usual diet Discharge Activity: Increase activity as tolerated Patient Instructions: Animal Bite (ED) Activity Restrictions/Additional Instructions: Return for any new or worsening symptoms. Clean the wound with soap and water every day and keep it clean and dry. Take the antibiotic as prescribed. Elevate the foot to reduce swelling. You can apply a cold compress to the area on and off for about 15 minutes at a time to reduce swelling. Take Tylenol or ibuprofen as needed for pain. You received the first dose of the rabies vaccine as well as immunoglobulin here in the emergency department. The other doses for the rabies vaccines will be due on May 23, May 27, and June 03. It is important that you complete the scheduling for the rabies vaccines. Coding Level of Care Code ED Motor Transport Inspector for Kaleb Fwmalgorzata Exam Comprehensive
[2021-05-20] MEDS: cefTRIAXone 1,000 MG in sodium chloride 0.9% (plus) 100 ML 200 MG IV (12:58)
--- NOTE | 2021-05-20 13:01 | PC.NURSE ---
[facility] office called at [phone]. Dispatch reports that the officer, Jaguar Moreno has already been on scene and that all 3 dogs are no longer alive[address] Dr. Larry notified.
[2021-05-20 13:22] VITALS: BP 114/72; PULSE 70; RESP 16; O2SAT 99
[2021-05-20] MEDS: rabies vaccine 2.5 unit SDV IM (14:30)
[2021-05-20 15:00] VITALS: BP 137/73; PULSE 73; RESP 18; O2SAT 100
[2021-05-20 15:06] VITALS: BP 111/81; PULSE 73; RESP 18; O2SAT 98
== END 2021-05-20 15:09 | disposition home or self-care (01) ==
PROVIDERS: Emergency Provider Family Medicine; PCP Nurse Practitioner Family
DX: S91.051A Open bite, right ankle, initial encounter (principal); E03.9 Hypothyroidism, unspecified; E78.2 Mixed hyperlipidemia; Z87.891 Personal history of nicotine dependence; W54.0XXA Bitten by dog, initial encounter; Y92.096 Garden or yard of other non-institutional residence as the place of occurrence of the external cause
CPT/HCPCS: 73502; 73610; 90471; 90675; 96365; 99284; J0696

== ENCOUNTER → 2021-06-24 13:38 | Outpatient (BNVA) | payer BC, SELFPAY | PROVIDERS: PCP Nurse Practitioner Family; Visit Provider Internal Medicine Rheumatology | DX: M31.5 Giant cell arteritis with polymyalgia rheumatica (principal); M79.7 Fibromyalgia; Z79.899 Other long term (current) drug therapy; H02.409 Unspecified ptosis of unspecified eyelid; H26.9 Unspecified cataract; M54.31 Sciatica, right side; Z71.89 Other specified counseling; Z87.891 Personal history of nicotine dependence | CPT/HCPCS: 80076; 82565; 85025; 86140; 99214 ==

== ENCOUNTER → 2021-11-01 15:40 | Outpatient (BNVA) | payer BC, SELFPAY | PROVIDERS: PCP Nurse Practitioner Family; Visit Provider Family Medicine | DX: J01.90 Acute sinusitis, unspecified (principal) | CPT/HCPCS: 87071; 87400; 87880 ==

== ENCOUNTER → 2022-03-01 11:04 | Outpatient (BNVA) | payer BC, SELFPAY | PROVIDERS: PCP Nurse Practitioner Family; Visit Provider Internal Medicine Rheumatology | DX: Z79.899 Other long term (current) drug therapy (principal); M31.5 Giant cell arteritis with polymyalgia rheumatica; Z71.89 Other specified counseling | CPT/HCPCS: 80076; 82565; 85025; 86140 ==

== ENCOUNTER → 2022-07-07 11:27 | Outpatient (BNVA) | payer BC, SELFPAY | PROVIDERS: PCP Family Medicine; Visit Provider Internal Medicine Rheumatology | DX: Z79.899 Other long term (current) drug therapy (principal); M31.5 Giant cell arteritis with polymyalgia rheumatica; M79.7 Fibromyalgia | CPT/HCPCS: 80076; 82565; 84439; 84443; 85025; 86140 ==

== ENCOUNTER → 2022-09-06 11:35 | Outpatient (BNVA) | payer BC, SELFPAY | PROVIDERS: PCP Family Medicine; Visit Provider Nurse Practitioner | DX: R05.9 Cough, unspecified (principal) | CPT/HCPCS: 87400 ==

== ENCOUNTER → 2022-11-09 13:55 | Outpatient (BNVA) | payer OTHER, BC, SELFPAY | PROVIDERS: PCP Family Medicine; Visit Provider Internal Medicine Rheumatology | DX: Z79.899 Other long term (current) drug therapy (principal); M31.5 Giant cell arteritis with polymyalgia rheumatica; M79.7 Fibromyalgia | CPT/HCPCS: 36415; 80076; 82565; 85025; 86140 ==

== ENCOUNTER → 2023-02-08 13:56 | Outpatient (BNVA) | payer OTHER, SELFPAY | PROVIDERS: PCP Family Medicine; Visit Provider Internal Medicine Rheumatology | DX: Z79.899 Other long term (current) drug therapy (principal); M31.5 Giant cell arteritis with polymyalgia rheumatica | CPT/HCPCS: 36415; 80076; 82565; 85025; 86140 ==

== ENCOUNTER 2023-05-23 13:30 | Outpatient (CLI) | payer OTHER, SELFPAY ==
--- NOTE | 2023-05-23 13:45 | US_ITS ---
WS: [id number] ULTRASOUND THYROID TECHNIQUE: Ultrasound of the thyroid. CLINICAL INFORMATION: E04.1 - Nontoxic single thyroid nodule COMPARISON: None. FINDINGS: Thyroid: Right and left thyroid lobes are normal in size with diffuse heterogeneous thyroid echotextu re bilaterally with increased vascularity. Heterogeneous micronodularity involving both thyroid gland s. Findings can be seen with Deanne's thyroiditis. Recommend correlation with thyroid function polo dies. Right thyroid lobe: 4.7 cm x 1.5 cm x 1.5 cm. Left thyroid lobe: 5.4 cm x 2.7 cm x 2.8 cm. Large solid well-circumscribed nodule LEFT mid thyroid with increased vascularity. Nodule measures ap proximately 3.2 x 1.9 x 3.8 cm. Isthmus: 0.3 mm. Cervical lymphadenopathy: None. US/US thyroid 14979 IMPRESSION: 1. Diffuse heterogeneous thyroid echotexture bilaterally with increased vascul arity can be seen with Deanne's thyroiditis. Recommend correlation with thyr oid function studies. 2. Dominant well-circumscribed solid LEFT thyroid nodule measuring 3.2 x 1.9 x 3.8 cm. This could be further evaluated with ultrasound-guided FNA.
== END 2023-05-23 13:31 | disposition home or self-care (01) ==
PROVIDERS: PCP Family Medicine; Visit Provider Nurse Practitioner Family
DX: E04.1 Nontoxic single thyroid nodule (principal)
CPT/HCPCS: 76536

== ENCOUNTER → 2023-05-24 14:07 | Outpatient (BNVA) | payer OTHER, SELFPAY | PROVIDERS: PCP Family Medicine; Visit Provider Internal Medicine Rheumatology | DX: M31.5 Giant cell arteritis with polymyalgia rheumatica (principal); Z79.899 Other long term (current) drug therapy | CPT/HCPCS: 36415; 80076; 82565; 85025; 86140 ==

== ENCOUNTER → 2023-06-14 14:00 | Outpatient (BNVA) | payer OTHER, SELFPAY | PROVIDERS: PCP Family Medicine; Visit Provider Otolaryngology | DX: E04.1 Nontoxic single thyroid nodule (principal); E03.9 Hypothyroidism, unspecified | CPT/HCPCS: 36415; 84439; 84443; 84479; 84480; 84481 ==

== ENCOUNTER 2023-06-23 08:40 | Outpatient (CLI) | payer OTHER, SELFPAY ==
--- NOTE | 2023-06-23 10:00 | US_ITS ---
WS: [id number] ULTRASOUND-GUIDED LEFT THYROID NODULE FNA HISTORY: Large thyroid nodule biopsy recommended. Procedure, risks, and complications were explained to the patient. Consent has been obtained. No interval change in size of the LEFT thyroid nodule since 05/23/2023. The skin is cleansed with ChloraPrep and anesthetized with 1% buffered lidocaine. FNA performed with 25 gauge needles. histotechnologist supervisor is present to fix slides. IMPRESSION: Uncomplicated FNA of a LEFT thyroid nodule. Final pathology results pending.
== END 2023-06-23 08:41 | disposition home or self-care (01) ==
LOC: RAD 08:43
PROVIDERS: PCP Family Medicine; Visit Provider Otolaryngology
DX: E04.1 Nontoxic single thyroid nodule (principal)
CPT/HCPCS: 10005; 88173

== ENCOUNTER 2023-07-06 08:06 | Day surgery (SDC) | payer OTHER, SELFPAY ==
[2023-07-05 10:46] VITALS: BMI 24.5
[2023-07-06] VITALS (18 sets, daily range): BP systolic 109–122; BP diastolic 65–86; PULSE 65–87; RESP 8–114; TEMP 36.1–36.7; O2SAT 92–100
--- NOTE | 2023-07-06 09:00 | W.PM.OPSUD ---
Surgery/Procedure H&P Update DATE OF PROCEDURE: July 06, 2023 DATE H&P PERFORMED: 06/30/23 H&P UPDATE INFORMATION: I have reviewed H&P completed within last 30 days, I have examined patient prior to procedure and No changes to prior documentation CHANGES TO PREVIOUS DOCUMENTATION: No changes PREOP DIAGNOSIS: Left thyroid nodule/hypothyroid PRIMARY INDICATION FOR PROCEDURE: Left thyroid nodule with hypertrophy and hypothyroidism PLANNED PROCEDURE: Operation Date: 07/06/23 10:30 Proposed Procedures p [id number] thyroid lobectomy E04.1,E03.9(Not Applicable) - Mehdi Cormier MD
[2023-07-06] MEDS: sodium chloride 0.9% 1,000 ML 30 ML IV (09:11)
--- NOTE | 2023-07-06 09:11 | ANES.PREANE2 ---
Pre-Anesthetic Assessment Height/Weight: Height 1.63 m Weight 64.864 kg Temp Pulse Resp BP Pulse Ox O2 Del Method 97.6 F 67 16 115/79 99 Room Air 07/06/23 08:35 07/06/23 08:35 07/06/23 08:35 07/06/23 08:35 07/06/23 08:35 07/06/23 08:38 Preop Diagnosis: Left thyroid nodule/hypothyroid Operation Date: 07/06/23 10:30 Proposed Procedures p [id number] thyroid lobectomy E04.1,E03.9(Not Applicable) - Mehdi Cormier MD Familial anesthetic complications: None Was Beta Antwon taken within 24 hours: N/A Was Clonidine taken within 24 hours: N/A Last intake: Intake Last Liquid Date 07/05/23 Last Liquid Time 21:00 Last Solid Date 07/05/23 Last Solid Time 22:30 Social No alcohol and No tobacco Exam alert, oriented x 3, clear to auscultation bilaterally and regular rate & rhythm Airway Mallampati: Class I Dentition: full GI Gastroesophageal Reflux Disease Metabolic Thyroid Disease [facility] [place] Fibromyalgia giant cell arteritis - ocassional prednisone use over the last year, but only takes 1 pill prn infrequently and not an entire course of steroids polymyalgia rheumatica Anesthetic Plan ASA status: 3 Anesthesia: General Risk of > 500 ml blood loss (7ml/kg in children): No Medications/Allergies Home Medications Medication Instructions Recorded Confirmed Last Taken Type cholecalciferol (vitamin D3) 50 2,000 unit PO DAILY@20 12/10/19 07/05/23 07/05/23 History mcg (2,000 unit) capsule docusate sodium 100 mg capsule 100 mg PO PRN PRN Constipation 12/10/19 07/05/23 Unknown History (Colace) multivitamin-folic acid 400 1 tab PO DAILY 12/04/20 07/05/23 07/05/23 History mcg-biotin 2,000 mcg tablet (Ekxv-Sdco-Xnfou (jvaikjyk-xlgnz-wkmlir)) lactobacillus combo no.11 15 1 cap PO DAILY PRN Constipation 05/20/21 07/05/23 05/20/21 History billion cell sprinkle capsule (Probiotic) diclofenac sodium 1 % topical gel 2 g topical QID #100 grams 09/16/21 07/05/23 Unknown Rx cyclobenzaprine 5 mg tablet 5 mg PO BID PRN muscle spasm 90 12/27/21 07/06/23 06/21/23 Rx days #180 tabs levocetirizine 5 mg tablet (Xyzal) 5 mg PO DAILY PRN Allergy Symptoms 07/07/22 07/05/23 Unknown History omeprazole 20 mg capsule,delayed 20 mg PO DAILY #90 caps 10/17/22 07/05/23 07/06/23 Rx release hydrocodone 5 mg-acetaminophen 325 1 tab PO BID PRN pain 30 days #60 05/11/23 07/06/23 05/31/23 Rx mg tablet tabs levothyroxine 25 mcg tablet See Rx Instructions .Route 05/19/23 07/05/23 07/06/23 Rx .COMPLEX #90 tabs tocilizumab 162 mg/0.9 mL 162 mg (0.9 mL) SUBCUT .q7DAYS #4 05/24/23 07/05/23 06/23/23 Rx subcutaneous syringe (Actemra) mL prednisone 2.5 mg tablet 2.5 mg PO DAILY PRN temporal 07/05/23 07/05/23 06/21/23 History arteritis prednisone 20 mg tablet See Rx Instructions .Route 07/05/23 07/05/23 Unknown History .COMPLEX PRN temporal arteritis Allergies Allergy/AdvReac Type Severity Reaction Status Date / Time Sulfa (Sulfonamide Allergy Intermediate itching Verified 06/30/23 10:30 Antibiotics) meloxicam Allergy edema Verified 06/30/23 10:30 ofloxacin [From Floxin] AdvReac Intermediate n/v Verified 06/30/23 10:30 leflunomide AdvReac fluid Verified 06/30/23 10:30 retention [facility] Anesthesia Medical History Allergic rhinitis Anxiety Back pain with right-sided radiculopathy Cataracts, bilateral Drooping eyelid Fatigue Fibromyalgia Giant cell arteritis with polymyalgia rheumatica High risk medication use Hypothyroid Hypothyroidism Immunization counseling 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 Medication management Mixed hyperlipidemia Other halfway (current) drug therapy Otitis media Plaque psoriasis Sinusitis Vitamin D deficiency, unspecified Surgical History History of appendectomy History of hysterectomy including cervix History of hysterectomy with bilateral oophorectomy Hx of cholecystectomy Family History Other CAD (coronary artery disease) Cancer Diabetes Hypertension Lung disease Rheumatoid arthritis Stroke Denies family history of Chronic kidney disease (CKD) Systemic lupus erythematosus (SLE) in adult Social History Smoking and tobacco status: never smoked Alcohol intake: unknown Substance/Drug Use: never Lives independently: No Household members: spouse Marital status: Single Data Anesthesia Cardiac Studies: No Data to Display
[2023-07-06] MEDS: ceFAZolin 2,000 MG in sodium chloride 0.9% (plus) 50 ML 100 MG IV (09:36)
[2023-07-06] MEDS: neomycin-poly-bacitracin oint 28 gm 1 APPLIC TOPICAL (10:07)
[2023-07-06] MEDS: lidocaine-epi 2% 1.7mL Cartridge (OR Only) 11.9 ML XX (10:16)
--- NOTE | 2023-07-06 11:02 | P.OP_ITS ---
Operative Report Date of procedure: July 06, 2023 Pre-op diagnosis: Left thyroid nodule Post-op diagnosis: Same Post-op findings: Enlarged left thyroid gland with nodule Procedure done: Left thyroid lobectomy Implants: Quarter inch Delmar drain Specimens removed/disposition: Left thyroid lobe Pathology: Left thyroid lobe with nodule for permanent section. Surgeon: Mehdi Cormier MD Anesthesia: General and Local Estimated blood loss: 20 mL Complications: No complications encountered Findings: Enlarged left thyroid lobe with large nodule. Did not grossly extend outside capsule. Brief History: 57-year-old female patient has had pressure symptoms and fullness in the left side of the neck having some difficulty swallowing and the fullness and pressure causing discomfort in the neck as well. Needle biopsy showed a benign nodule. The patient wanted the left lobe removed. Therefore she is being brought to the operating room to undergo a left thyroid lobectomy. The procedures risks and complications of been explained in detail. These risks include bleeding and infection and numbness and scarring and swelling and bruising as well as vocal cord weakness or paralysis which could be temporary or permanent. Other risks include the fact that on permanent section if malignancy was found it would be necessary to perform a second procedure to remove the right gland. Other more serious risks associated with anesthesia were also discussed and understood. With these things discussed and questions answered the patient gave informed consent and this was witnessed. Procedure: Description of procedure: The patient was placed on the operating table in the supine position. Adequate general endotracheal tube anesthesia was obtained. She was given Ancef IV for prophylaxis and Decadron to help with postoperative edema. She was repositioned into a semirecumbent position. Her neck was exposed. A shoulder roll was placed under the shoulders. The sign the site was noted. The area was cleansed with alcohol and then a total of 3.4 mL of 2% Xylocaine with 1-100,000 epinephrine was used to infiltrate the skin and subcutaneous area where the incision was planned. The patient was then prepped and draped in usual fashion. A timeout was accomplished identifying the patient date of plan procedure allergies fire risk and medications given. With all in agreement the procedure continued. A marking pen was used to outline a curvilinear incision in a lower neck skin crease line. Sternal notch and center of larynx were marked and the incision was created with a 15 blade carrying it down to the subcutaneous fat layer. Then the cut and coagulation mode of the Bovie with the needle tip was used to dissect down through the platysma muscle layer and then down to the fascia covering the strap muscles. The midline was identified with the raphae dissected vertically and then dissection was carried out under the strap muscles over the left thyroid lobe. This was done with blunt dissection and dissection with the Morales dissector and using bipolar or needle tip Bovie to cut. Then wheat [place] retractors were placed for visualization. It was decided to in this case dissect from a superior direction initially as her thyroid was setting lower in the neck than is typically seen. Therefore the superior vessels were identified and clipped and cut. Medium and large clips were used. Bipolar cautery was used to cut through the smaller vessels. After the suspensory ligament was cut and the superior aspect was loose I dissected anteriorly to the center of the isthmus and cut through this with the Bovie. Hemostasis was attained with bipolar cautery. Once the left lobe was freed from the isthmus and the right lobe it was dissected off the trachea for approximately 1 to 2 cm but not down into the tracheal or esophageal groove. Then dissection was carried from the superior posterior lateral and inferior wave identifying the parathyroid glands and preserving them with vascularity. Then dissection was carried to the tracheoesophageal groove identifying the recurrent laryngeal nerve in his usual path and preserving it. No cauterization or dissection was carried out other than to uncover it. The gland was then severed from the inferior fascial attachments and the specimen forwarded to pathology for permanent section. The area was then irrigated with sterile water. Minimal ooze was noted and bipolar cautery was used to control that in the muscular layers. Then Benjamin was used to treat minimal ooze on the larynx insertion of the nerve and in the median raphae. 1/4 inch Colton drain was placed to the median raphae and down into the left side surgical defect. This was later sutured to the neck with a 5-0 nylon suture. With no further sign of any bleeding the strap muscles were closed medially with interrupted 4-0 chromic suture. The platysma layer was closed with interrupted 4-0 chromic suture. The subcutaneous layer was closed with interrupted 4-0 chromic suture. The drain was brought out through a right inferior neck location and the incision was checked for any gaps. The closure at this point subcutaneously was approximating the skin completely and therefore Dermabond after cleansing the s kin was used to close the skin. After it was dry a fluffs and Kerlix rolls were applied around the neck with her head flexed forward. The patient was then returned to anesthesia for wake-up and extubation. She tolerated the procedure well had an estimated blood loss of 20 mL and arrived in recovery in stable condition.
[2023-07-06] MEDS: ondansetron 2 mg/ML SDV 2 mL 4 MG IVP ×2 (11:59→12:55)
[2023-07-06] MEDS: fentaNYL 50 mcg/mL INJ 2mL IVP (12:01)
[2023-07-06] MEDS: cetylpyridinium Lozenge 1 EACH MUCOUS MEM (13:00)
--- NOTE | 2023-07-06 14:30 | SUR.PHASEII ---
14:30 NECK DRESSING DRY AND INTACT. NO BLOOD NOTED. AIRWAY PATENT ABLE TO SWALLOW FLUIDS WITH MINOR DISCOMFORT.
--- NOTE | 2023-07-06 14:45 | ANE.PACU2 ---
Inpatient post-anesthesia follow up: Airway intact: Yes Vital signs: Temperature 98.0 F Pulse Rate 76 Respiratory Rate 16 Blood Pressure 115/69 Pulse Oximetry 98 Oxygen Delivery Me thod Room Air Oxygen Flow Rate Fraction of Inspir ed Oxygen Hydration adequate: Yes Nausea and vomiting: No Pain level: 1 Mental status: Baseline
== END 2023-07-06 14:45 | disposition home or self-care (01) ==
PROVIDERS: PCP Family Medicine; Visit Provider Otolaryngology
PROC: (CPT 60220; principal; 2023-07-06 10:10)
DX: E04.1 Nontoxic single thyroid nodule (principal); K21.9 Gastro-esophageal reflux disease without esophagitis; M79.7 Fibromyalgia; E78.2 Mixed hyperlipidemia; E03.9 Hypothyroidism, unspecified
CPT/HCPCS: 60220; 88307; J0330; J0690; J1100; J2405; J2704; J3010; J3490; J7030

== ENCOUNTER → 2023-08-10 11:56 | Outpatient (BNVA) | payer OTHER, SELFPAY | PROVIDERS: PCP Family Medicine; Visit Provider Family Medicine | DX: E06.3 Autoimmune thyroiditis (principal); E03.9 Hypothyroidism, unspecified | CPT/HCPCS: 84439; 84443; 84481 ==

== ENCOUNTER → 2023-10-13 10:22 | Outpatient (BNVA) | payer OTHER, SELFPAY | PROVIDERS: PCP Nurse Practitioner Family; Visit Provider Internal Medicine | DX: E06.3 Autoimmune thyroiditis (principal) | CPT/HCPCS: 84439; 84443 ==

== ENCOUNTER → 2023-11-14 10:55 | Outpatient (BNVA) | payer OTHER, SELFPAY | PROVIDERS: PCP Nurse Practitioner Family; Visit Provider Internal Medicine Rheumatology | DX: Z79.899 Other long term (current) drug therapy (principal); M31.5 Giant cell arteritis with polymyalgia rheumatica | CPT/HCPCS: 36415; 80076; 82565; 85025; 86140 ==

== ENCOUNTER 2023-12-25 09:51 | Outpatient (CLI) | payer OTHER, SELFPAY ==
[2023-12-25 10:24] LABS: Basophils # 0.1 10^3/uL (0.0-0.1); Eosinophils # 0.2 10^3/uL (0.0-0.8); Eosinophils % 3.1 %; Hematocrit 39.9 % (36-47); Lymphocytes # 2.1 10^3/uL (0.8-4.8); Lymphocytes % 42.4 %; Mean Corpuscular HGB Conc 34.3 g/dL (30-55); Mean Corpuscular Hemoglobin 30.4 pg (27-33); Mean Corpuscular Volume 88.5 fl (85-98); Mean Platelet Volume 11.3 fL (7.4-10.4); Monocytes # 0.3 10^3/uL (0.2-0.9); Neutrophils # 2.24 10^3/uL (1.8-7.7); Neutrophils % 46.5 %; Nucleated Red Blood Cells % 0 %; Platelet Count 203 10^3/cmm (157-399); Red Blood Count 4.51 10^6/uL (3.85-5.65); Red Cell Distribution Width 11.9 % (12.1-15.1); White Blood Count 4.83 10^3/uL (3.29-11.43)
[2023-12-25 10:35] LABS: Add Urine Culture? No; Bacteria Urine 1+ /hpf; Bilirubin Urine Neg (Negative); Blood Urine Neg (Negative); Glucose Urine UA Norm (Normal); Hyaline Casts Urine RARE /lpf; Ketones Urine Negative (Negative); Leukocyte Esterase Urine Negative (Negative); Mucus Urine 2+ /hpf; Nitrate Urine Negative (Negative); Protein Urine Trace (Negative); RBC Urine 0-4 /hpf (0-2); Specific Gravity, Urine 1.025 (1.005-1.030); Squamous Epithelial Cell Urine 0-4 /hpf (0-5); Urine Appearance Clear (CLEAR); Urine Color Yellow (Yellow); Urobilinogen Urine Neg (Negative); WBC Urine 0-4 /hpf (0-5); pH Urine 5 (5-7)
[2023-12-25 10:43] LABS: Alanine Aminotransferase 22 U/L (0-33); Albumin Level 4.4 g/dL (3.5-5.2); Alkaline Phosphatase 60 U/L (35-105); Aspartate Amino Transferase 22 U/L (0-32); Blood Urea Nitrogen 17 mg/dL (6-20); Calcium 9.1 mg/dL (8.5-10.5); Carbon Dioxide 26 mmol/L (22-29); Chloride 109 mmol/L (98-107); Chol HDL Ratio 4.33 mg/dL (0.0-4.40); Cholesterol 225 mg/dL (0-200); Globulin 2.5 g/dL (1.3-4.6); Glomerular Filtration Rate 74.2 mL/min (90-130); Glucose 71 mg/dL (65-115); HDL Cholesterol 52 mg/dL (60-100); LDL Cholesterol Calculated 130 mg/dL (50-129); Osmolality Calculated 296 mOsm/kg (285-295); Sodium 143 mmol/L (136-145); Total Bilirubin 0.3 mg/dL (0.15-1.2); Total Protein 6.9 g/dL (6.6-8.7); Triglycerides 217 mg/dL (0-150)
[2023-12-25 10:57] LABS: 25 Hydroxy Vitamin D 55 ng/mL (30-100)
[2023-12-25 11:18] LABS: Free T4 Free Thyroxine 1.15 ng/dL (0.82-1.77)
[2023-12-25 11:46] LABS: Estmated Average Glucose 105; Hemoglobin A1C 5.3 % (4.0-6.0)
[2023-12-25 13:19] LABS: Thyroid Stimulating Hormone 2.14 uIU/mL (0.27-4.20)
== END 2023-12-25 09:52 | disposition home or self-care (01) ==
LOC: LAB 09:52
PROVIDERS: PCP Nurse Practitioner Family; Visit Provider Nurse Practitioner Family
DX: E78.2 Mixed hyperlipidemia (principal); R53.83 Other fatigue; Z79.899 Other long term (current) drug therapy; E06.3 Autoimmune thyroiditis
CPT/HCPCS: 36415; 80053; 80061; 81001; 82306; 83036; 84439; 84443; 85025

== ENCOUNTER → 2023-12-28 16:33 | Outpatient (BNVA) | payer OTHER, SELFPAY | PROVIDERS: PCP Nurse Practitioner Family; Visit Provider Nurse Practitioner Family | DX: N89.8 Other specified noninflammatory disorders of vagina (principal) | CPT/HCPCS: 87070; 87077; 87184; 87205 ==

== ENCOUNTER 2024-01-31 13:02 | Outpatient (CLI) | payer OTHER, SELFPAY ==
--- NOTE | 2024-01-31 13:00 | MM_ITS ---
WS: [id number] BILATERAL 3D TOMOSYNTHESIS DIGITAL SCREENING MAMMOGRAPHY WITH CAD CLINICAL INFORMATION: Z12.31 - Encounter for screening mammogram for malignant ... HISTORY: Screening mammogram. No current complaints. COMPARISON: 2020 TECHNIQUE: Bilateral CC and MLO views. FINDINGS: Scattered fibroglandular densities bilaterally. No suspicious focal mass, asymmetry, calcifications, or architectural distortion. No evidence of malignancy. A few tiny incidental punctate calcifications IMPRESSION: MM/[place] [id number] BI-RADS: 2-Benign FOLLOW UP: 1 Year Follow-up Recommend return to annual screening mammography.
== END 2024-01-31 13:03 | disposition home or self-care (01) ==
LOC: MOBLMAM 13:06
PROVIDERS: PCP Nurse Practitioner Family; Visit Provider Nurse Practitioner Family
DX: Z12.31 Encounter for screening mammogram for malignant neoplasm of breast (principal)
CPT/HCPCS: 77063; 77067

== ENCOUNTER → 2024-02-01 08:53 | Outpatient (BNVA) | payer OTHER, SELFPAY | PROVIDERS: PCP Nurse Practitioner Family; Visit Provider Nurse Practitioner Family | DX: R68.89 Other general symptoms and signs (principal) | CPT/HCPCS: 87400 ==

== ENCOUNTER → 2024-03-05 12:20 | Outpatient (BNVA) | payer OTHER, SELFPAY | PROVIDERS: PCP Nurse Practitioner Family; Visit Provider Internal Medicine | DX: E04.1 Nontoxic single thyroid nodule (principal); E06.3 Autoimmune thyroiditis; E03.9 Hypothyroidism, unspecified | CPT/HCPCS: 36415; 80053; 84439; 84443 ==

== ENCOUNTER → 2024-07-29 12:14 | Outpatient (BNVA) | payer OTHER, SELFPAY | PROVIDERS: PCP Nurse Practitioner Family; Visit Provider Internal Medicine Rheumatology | DX: M31.5 Giant cell arteritis with polymyalgia rheumatica (principal); Z79.899 Other long term (current) drug therapy | CPT/HCPCS: 36415; 80076; 82565; 85025; 85651; 86140 ==

== ENCOUNTER 2024-09-13 12:50 | Outpatient (CLI) | payer OTHER, SELFPAY ==
[2024-09-13 13:36] LABS: Albumin Level 4.5 g/dL (3.5-5.2); Alkaline Phosphatase 56 U/L (35-105); Aspartate Amino Transferase 28 U/L (0-32); Blood Urea Nitrogen 18 mg/dL (6-20); Calcium 9.1 mg/dL (8.5-10.5); Carbon Dioxide 24 mmol/L (22-29); Chloride 109 mmol/L (98-107); Glomerular Filtration Rate 57.4 mL/min (90-130); Glucose 107 mg/dL (65-115); Osmolality Calculated 298 mOsm/kg (285-295); Sodium 143 mmol/L (136-145); Total Bilirubin 0.4 mg/dL (0.15-1.2); Total Protein 7.5 g/dL (6.6-8.7)
[2024-09-13 13:40] LABS: Anion Gap 14.2 (5-19); Potassium 4.2 mmol/L (3.5-5.1)
[2024-09-13 13:48] LABS: Alanine Aminotransferase < 5 U/L (0-33)
[2024-09-13 14:02] LABS: Free T4 Free Thyroxine 1.16 ng/dL (0.82-1.77)
== END 2024-09-13 12:51 | disposition home or self-care (01) ==
LOC: LAB 12:51
PROVIDERS: PCP Nurse Practitioner Family; Visit Provider Internal Medicine
DX: E04.1 Nontoxic single thyroid nodule (principal); E06.3 Autoimmune thyroiditis; E03.9 Hypothyroidism, unspecified
CPT/HCPCS: 36415; 80053; 84439; 84443

== ENCOUNTER 2024-10-04 16:39 | Outpatient (CLI) | payer OTHER, MEDICAID, SELFPAY ==
--- NOTE | 2024-10-04 17:30 | USR_ITS ---
PROCEDURE INFORMATION: Exam: US Soft Tissue Head and Neck, Thyroid Exam date and time: 10/04/2024 5:07 PM Age: 58 years old Clinical indication: Condition or disease; Thyroid disorder; Other: Nodule; Additional info: Thyroid nodule, include tirads TECHNIQUE: Imaging protocol: Real-time ultrasound scan of the neck with image documentation. Exam focused on the thyroid. COMPARISON: US biopsy/FNA thyroid [id number] 06/23/2023 9:24 AM FINDINGS: Right thyroid lobe: 4.8 x 1.7 x 1.3 cm. Heterogeneous, somewhat septated appearance, and mildly hypervascular, no dominant nodule identified. Left thyroid lobe: Previous left thyroidectomy. No thyroid bed mass. Isthmus: 0.3 cm. No nodules. Salivary glands: Unremarkable bilateral submandibular glands. Lymph nodes: Normal bilateral cervical lymph nodes. These nodes do not meet size or other criteria for significance. US/US thyroid [id number] IMPRESSION: 1. Previous left thyroidectomy. 2. 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
== END 2024-10-04 16:40 | disposition home or self-care (01) ==
LOC: RAD 16:41
PROVIDERS: PCP Nurse Practitioner Family; Visit Provider Internal Medicine
DX: E04.1 Nontoxic single thyroid nodule (principal); E06.3 Autoimmune thyroiditis; E03.9 Hypothyroidism, unspecified; Z98.890 Other specified postprocedural states
CPT/HCPCS: 76536

== ENCOUNTER 2024-11-27 08:53 | Outpatient (CLI) | payer MEDICAID, SELFPAY ==
[2024-11-27 09:54] LABS: Free T4 Free Thyroxine 1.11 ng/dL (0.82-1.77); Thyroid Stimulating Hormone 2.67 uIU/mL (0.27-4.20)
--- NOTE | 2024-11-27 10:00 | FL_ITS ---
WS: [id number] Exam: FL barium swallow modifd [id number] Date/Time of Exam: 11/27/2024 9:06 AM Reason For Exam: R13.10 - Dysphagia, unspecified Fluoroscopy time: 3min [id number] minutes # of spot films: Modified barium swallow test was performed in conjunction with the speech therapy service. Oral pharyngeal phase of swallowing was normal. The patient tolerated all consistencies of barium mix ture foodstuffs without aspiration or penetration. The patient swallowed a barium tablet without diff iculty or complication. FL/FL barium swallow modifd [id number] IMPRESSION: 1. Unremarkable modified barium swallow test. A separate report and recommendations will follow from the speech therapy servi ce.
== END 2024-11-27 08:54 | disposition home or self-care (01) ==
PROVIDERS: PCP Nurse Practitioner Family; Visit Provider Internal Medicine
DX: R13.10 Dysphagia, unspecified (principal); E04.1 Nontoxic single thyroid nodule; E06.3 Autoimmune thyroiditis; E03.9 Hypothyroidism, unspecified
CPT/HCPCS: 36415; 74230; 84439; 84443; 92611

== ENCOUNTER → 2024-12-03 12:30 | Outpatient (BNVA) | payer OTHER, SELFPAY | PROVIDERS: PCP Nurse Practitioner Family; Visit Provider Internal Medicine Rheumatology | DX: M31.5 Giant cell arteritis with polymyalgia rheumatica (principal); M79.7 Fibromyalgia; Z71.89 Other specified counseling; Z79.899 Other long term (current) drug therapy | CPT/HCPCS: 36415; 80076; 82565; 85025; 85651; 86140 ==

== ENCOUNTER → 2025-01-20 13:19 | Outpatient (BNVA) | payer MEDICAID, SELFPAY | PROVIDERS: PCP Nurse Practitioner Family; Visit Provider Nurse Practitioner Family | DX: J18.9 Pneumonia, unspecified organism (principal); J22 Unspecified acute lower respiratory infection | CPT/HCPCS: 71046; 87400; 87426; 87880 ==

== ENCOUNTER 2025-02-04 15:58 | Outpatient (CLI) | payer MEDICAID, SELFPAY ==
--- NOTE | 2025-02-04 15:59 | CT_ITS ---
WS: [id number] CT NECK TECHNIQUE: Contrast-enhanced CT of the neck with coronal and sagittal reformatted images. CLINICAL INFORMATION: PARALYSIS VOCAL CORDS PARTIAL COMPARISON: None. DLP: 143.[address] scans at [facility] use at least one of these dose optimization techniques: automated exposure control; mA and/or kV adjustment per patient size (includes targeted exams where dose is matched to clinical indication); or iterative reconstruction. FINDINGS: Paranasal sinuses are well aerated. Mastoid air cells are well aerated. Normal posterior nasopharynx. Normal parapharyngeal fat. Parotid glands are normal. Normal submandibular glands. No evidence of supraglottic or glottic mass. Normal subglottic airway. Slight ballooning of the LEFT laryngeal ventricle. Recommend correlation for LEFT vocal cord paralysis. No cervical lymphadenopathy. Lung apices are well aerated. Mild spondylitic changes cervical spine. Prior LEFT thyroidectomy. Few small nodules RIGHT thyroid. CT/CT neck w con* [id number] IMPRESSION: 1. Slight ballooning of the LEFT laryngeal ventricle. Recommend correlation fo r LEFT vocal cord paralysis. 2. No evidence of supraglottic or glottic mass. 3. Normal salivary glands. 4. Prior LEFT thyroidectomy. A few small RIGHT thyroid nodules.
[2025-02-04] MEDS: iohexol 350 mg/mL 500 mL Btl (per mL) IV (16:11)
== END 2025-02-04 15:59 | disposition home or self-care (01) ==
LOC: RAD 15:58
PROVIDERS: PCP Nurse Practitioner Family; Visit Provider Otolaryngology
DX: J38.01 Paralysis of vocal cords and larynx, unilateral (principal); R13.13 Dysphagia, pharyngeal phase; R93.89 Abnormal findings on diagnostic imaging of other specified body structures; Z98.890 Other specified postprocedural states; E04.2 Nontoxic multinodular goiter; M47.892 Other spondylosis, cervical region
CPT/HCPCS: 70491

== ENCOUNTER 2025-03-05 12:43 | Outpatient (CLI) | payer MEDICAID, SELFPAY ==
--- NOTE | 2025-03-05 12:40 | MM_ITS ---
WS: [id number] BILATERAL 3D TOMOSYNTHESIS DIGITAL SCREENING MAMMOGRAPHY WITH CAD CLINICAL INFORMATION: SCREENING HISTORY: Screening mammogram. No current complaints. COMPARISON: 2023 TECHNIQUE: Bilateral CC and MLO views. FINDINGS: Scattered fibroglandular densities bilaterally. No suspicious focal mass, asymmetry, calcifications, or architectural distortion. No evidence of malignancy. MM/MM scr BI tomosynthesis [id number] IMPRESSION: DENSITY: There are scattered areas of fibroglandular density. BI-RADS: 1 - Negative. FOLLOW UP: 1 Year Follow-up Recommend return to annual screening mammography.
== END 2025-03-05 12:44 | disposition home or self-care (01) ==
LOC: MOBLMAM 12:44
PROVIDERS: PCP Nurse Practitioner Family; Visit Provider Nurse Practitioner Family
DX: Z12.31 Encounter for screening mammogram for malignant neoplasm of breast (principal); R92.323 Mammographic fibroglandular density, bilateral breasts
CPT/HCPCS: 77063; 77067

== ENCOUNTER → 2025-03-10 12:15 | Outpatient (BNVA) | payer OTHER, SELFPAY | PROVIDERS: PCP Nurse Practitioner Family; Visit Provider Internal Medicine Rheumatology | DX: Z79.899 Other long term (current) drug therapy (principal) | CPT/HCPCS: 36415; 80076; 82565; 85025; 85651; 86140; 86706; 86803; 87340; 87806 ==

== ENCOUNTER 2025-04-28 08:00 | Outpatient (CLI) | payer MEDICAID, SELFPAY | END 2025-04-28 08:01 | disposition home or self-care (01) | PROVIDERS: PCP Nurse Practitioner Family; Visit Provider Nurse Practitioner Family | DX: J22 Unspecified acute lower respiratory infection (principal) | CPT/HCPCS: 71046 ==

== ENCOUNTER 2025-05-28 10:34 | Outpatient (CLI) | payer MEDICAID, SELFPAY ==
[2025-05-28 11:26] LABS: Free T4 Free Thyroxine 1.01 ng/dL (0.82-1.77); Thyroid Stimulating Hormone 2.63 uIU/mL (0.27-4.20)
== END 2025-05-28 10:35 | disposition home or self-care (01) ==
LOC: LAB 10:35
PROVIDERS: PCP Nurse Practitioner Family; Visit Provider Internal Medicine
DX: E06.3 Autoimmune thyroiditis (principal); E03.9 Hypothyroidism, unspecified
CPT/HCPCS: 36415; 84439; 84443

== ENCOUNTER 2025-06-03 07:28 | Day surgery (SDC) | payer MEDICAID, SELFPAY ==
[2025-06-03] VITALS (14 sets, daily range): BP systolic 88–127; BP diastolic 48–74; PULSE 56–79; RESP 12–18; TEMP 36.1–36.7; O2SAT 90–98; BMI 30.2
--- NOTE | 2025-06-03 08:40 | ANES.PREANE2 ---
Pre-Anesthetic Assessment Height/Weight: Height 1.52 m Weight 70.307 kg Temp Pulse Resp BP Pulse Ox O2 Del Method 97.4 F L 56 L 16 127/74 98 Room Air 06/03/25 08:00 06/03/25 08:00 06/03/25 08:00 06/03/25 08:00 06/03/25 08:00 06/03/25 08:03 Operation Date: 06/03/25 09:30 Proposed Procedures p Direct Microdirect Larynoscopy(Left) - Federico Fuentes MD s with injection /Laryngoplasty of left true vocal cord(Left) - Federico Fuentes MD Familial anesthetic complications: NOne Was Beta Antwon taken within 24 hours: N/A Was Clonidine taken within 24 hours: N/A Last intake: Intake Last Liquid Date 06/02/25 Last Liquid Time 19:30 Last Solid Date 06/02/25 Last Solid Time 22:00 Social No alcohol and No tobacco Exam alert, oriented x 3, clear to auscultation bilaterally and regular rate & rhythm Airway Mallampati: Class II Dentition: chipped GI Gastroesophageal Reflux Disease Metabolic Thyroid Disease Musc/skel Fibromyalgia Anesthetic Plan ASA status: 3 Anesthesia: General Risk of > 500 ml blood loss (7ml/kg in children): No Medications/Allergies Home Medications ?Medication ?Instructions ?Recorded ?Confirmed ?Last Taken ?Type cholecalciferol (vitamin D3) 50 2,000 unit PO DAILY@20 12/10/19 06/02/25 06/02/25 History mcg (2,000 unit) capsule docusate sodium 100 mg capsule 100 mg PO PRN PRN Constipation 12/10/19 06/02/25 3 Months Ago History (Colace) ~03/02/25 multivitamin-folic acid 400 1 tab PO DAILY 12/04/20 06/02/25 06/02/25 History mcg-biotin 2,000 mcg tablet (Phgz-Rvyg-Ljwgp (wpleskux-ciqfd-zviciv)) lactobacillus combo no.11 15 1 cap PO DAILY PRN Constipation 05/20/21 06/02/25 1 Month Ago History billion cell sprinkle capsule ~05/02/25 (Probiotic) diclofenac sodium 1 % topical gel 2 g topical QID #100 grams 09/16/21 06/02/25 Unknown Rx cyclobenzaprine 5 mg tablet 5 mg PO BID PRN muscle spasm 90 02/28/22 08/04/25 2 Months Ago Rx days #180 tabs ~04/02/25 omeprazole 20 mg capsule,delayed 20 mg PO DAILY #90 caps 03/10/25 06/02/25 06/02/25 Rx release tocilizumab-aazg 162 mg/0.9 mL 162 mg (0.9 mL) SUBCUT Q7D #4 mL 03/10/25 06/02/25 1 Week Ago Rx subcutaneous pen injector (Tyenne ~05/26/25 Autoinjector) citalopram 10 mg tablet 20 mg PO DAILY 04/28/25 06/02/25 06/02/25 History hydrocodone 5 mg-acetaminophen 325 1 tab PO BID PRN pain 30 days #60 04/28/25 06/02/25 3 Weeks Ago Rx mg tablet tabs ~05/12/25 levothyroxine 50 mcg tablet 50 mcg PO .6DAYS/WEEK 04/28/25 06/02/25 06/03/25 History prednisone 20 mg tablet 20 mg PO DIRECTED PRN temporal 04/28/25 06/02/25 2 Months Ago History arteritis ~04/02/25 fezolinetant 45 mg tablet 45 mg PO DAILY #90 tabs 05/28/25 06/02/25 Unknown Rx prednisone 2.5 mg tablet 2.5 mg PO PRN PRN Inflammation 06/02/25 06/02/25 1 Week Ago History ~05/26/25 Allergies Allergy/AdvReac Type Severity Reaction Status Date / Time Sulfa (Sulfonamide Allergy Intermediate itching Verified 06/02/25 10:50 Antibiotics) meloxicam Allergy edema Verified 06/02/25 10:50 ofloxacin (From Floxin) AdvReac Intermediate n/v Verified 06/02/25 10:50 leflunomide AdvReac fluid Verified 06/02/25 10:50 retention Current Medications Generic Name Dose Route Start Last Admin Trade Name Freq PRN Reason Stop Dose Admin Sodium Chloride 1,000 mls @ 30 mls/hr 06/03/25 08:00 06/03/25 08:34 Sodium Chloride 0.9% IV 06/04/25 07:59 30 mls/hr .Q24H CHRISTOPHER Administration PFSH Anesthesia Medical History Wheezing Lower respiratory infection Pneumonia Upper respiratory infection Upper respiratory infection due to daniel influenza virus Hot flashes Deanne's thyroiditis Hypothyroid Bilateral hand pain Trigger finger TSH (thyroid-stimulating hormone deficiency) History of temporal arteritis Screening-pulmonary TB Flu-like symptoms Pseudomonas aeruginosa infection Hot flash, menopausal Postmenopausal Vaginal discharge Encounter for mammogram to establish baseline mammogram Chronic pain Drooping eyelid Back pain with right-sided radiculopathy Cataracts, bilateral Otitis media Sinusitis Mixed hyperlipidemia Fatigue Medication management custodial current use of diuretic Hypothyroid Immunization counseling Anxiety Hypothyroidism High risk medication use Allergic rhinitis Vitamin D deficiency, unspecified Other middle or intermediate school principal (current) drug therapy Plaque psoriasis Fibromyalgia Immunosuppression Giant cell arteritis with polymyalgia rheumatica Surgical History History of hysterectomy including cervix History of hysterectomy with bilateral oophorectomy History of appendectomy Hx of cholecystectomy Family History Other CAD (coronary artery disease) Cancer Diabetes Hypertension Lung disease Rheumatoid arthritis Stroke Denies family history of Chronic kidney disease (CKD) Systemic lupus erythematosus (SLE) in adult Social History Smoking and tobacco/nicotine status: former use of tobacco/nicotine Alcohol intake: never Substance/Drug Use: never Lives independently: No Household members: spouse Marital status: Single
--- NOTE | 2025-06-03 10:35 | W.PM.OPSUD ---
Surgery/Procedure H&P Update DATE OF PROCEDURE: June 03, 2025 DATE H&P PERFORMED: 05/19/25 PLANNED PROCEDURE: Operation Date: 06/03/25 09:30 Proposed Procedures p Direct Microdirect Larynoscopy(Left) - Federico Fuentes MD s with injection /Laryngoplasty of left true vocal cord(Left) - Federico Fuentes MD
[2025-06-03] MEDS: ceFAZolin 2,000 MG in sodium chloride 0.9% (plus) 50 ML 150 MG IV (10:39)
--- NOTE | 2025-06-03 11:16 | P.OP_ITS ---
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 - Chronic hoarseness Post-op diagnosis: same Post-op findings: - Left true vocal cord in the paramedian postion - Chronic laryngitis - O/W normal laryngeal exam Procedure done: - Microdirect laryngoscopy - Injection laryngoplasty of the left true vocal cord with 0.55mL of ProLaryn gel implant Implants: ProLaryn Gel implant - Left true vocal cord Specimens removed/disposition: None Pathology: none sent Surgeon: Federico Fuentes Surgeon: Federico Fuentes MD Surgical Assistant: Jemal Rosado Anesthesia: General Estimated blood loss (mL): 1 IV fluids (mL): 250 Complications: None Findings: - Left true vocal cord in the paramedian postion - Chronic laryngitis - O/W normal laryngeal exam Condition: stable Disposition: PACU Brief History: 59 yo wf who developed left true vocal cord paralysis following a left hemithyroidectomy in the past who desires surgical remediation of her chronic hoarseness. Procedure: The patient was identified in the preoperative holding area and was taken to the operating room where she was placed on the operating table in the supine position. Anesthesia was obtained with general endotracheal anesthesia and the table was then turned 90 degrees to the patient's left. The patient was then prepped and draped in the usual sterile fashion. A moist Ray-Vinod was placed on the patient's maxillary teeth and the surgical laryngoscope was advanced down the right oral cavity gutter under direct vision until the larynx came into view. The patient was then suspended with the Lewy arm and the surgical microscope with a 400 lens was brought into the field and was used to inspect the larynx with the findings noted above. At this point 0.55 mL of ProLaryn gel implant was injected into the patient's left true vocal cord lateral to the vocal process of the left arytenoid into the thyroarytenoid muscle and posterior true vocal cord. Once the appropriate amount of gel implant was injected, the patient was taken off of suspension and the larynx was reinspected for airway adequacy. At this point the laryngoscope was atraumatically removed from the patient and the procedure was terminated. Control of the patient was returned to anesthesia where she underwent an uneventful reversal of anesthesia and extubation and was taken to the recovery room in stable condition. There were no operative or anesthetic complications.
[2025-06-03] MEDS: fentaNYL 50 mcg/mL INJ 2mL IVP (11:28)
--- NOTE | 2025-06-03 11:46 | PC.NURSE ---
1145 - pt report given to HUA Santillan - informed per this nurse of Dr Fuentes order for voice rest for patient
--- NOTE | 2025-06-03 12:19 | SUR.PHASEII ---
PT RESTING COMFORTABLY. AIRWAY PATENT WITH GOOD VENTILATIONS. ABLE TO TOLERATE COOL PO FLUIDS WELL. FAMILY AT BEDSIDE.
--- NOTE | 2025-06-03 13:15 | ANE.PACU2 ---
Inpatient post-anesthesia follow up: Airway intact: Yes Vital signs: Temperature 98.1 F Pulse Rate 64 Respiratory Rate 14 Blood Pressure 98/56 Pulse Oximetry 97 Oxygen Delivery Me thod Room Air Oxygen Flow Rate Fraction of Inspir ed Oxygen Hydration adequate: Yes Nausea and vomiting: No Pain level: 1 Mental status: Baseline
== END 2025-06-03 13:40 | disposition home or self-care (01) ==
PROVIDERS: PCP Nurse Practitioner Family; Visit Provider Specialist
PROC: 0CJS8ZZ Inspection of Larynx, Via Natural or Artificial Opening Endoscopic (ICD-10-PCS; CPT 31571; principal; 2025-06-03 09:20)
PROC: 3E0F3GC Introduction of Other Therapeutic Substance into Respiratory Tract, Percutaneous Approach (ICD-10-PCS; CPT 31571; 2025-06-03 09:20)
DX: J38.01 Paralysis of vocal cords and larynx, unilateral (principal); R49.0 Dysphonia; K21.9 Gastro-esophageal reflux disease without esophagitis; E03.9 Hypothyroidism, unspecified; E78.2 Mixed hyperlipidemia; F41.9 Anxiety disorder, unspecified; M79.7 Fibromyalgia; Z87.891 Personal history of nicotine dependence
CPT/HCPCS: 31571; C1763; J0131; J0169; J0330; J0690; J1100; J1885; J2250; J2405; J2704; J3010; J3490; J7030; J9999

== ENCOUNTER 2025-08-27 12:56 | Outpatient (CLI) | payer MEDICAID, SELFPAY ==
[2025-08-27 14:05] LABS: Alanine Aminotransferase 26 U/L (0-33); Albumin Level 4.6 g/dL (3.5-5.2); Alkaline Phosphatase 66 U/L (35-105); Anion Gap 16.0 (5-19); Aspartate Amino Transferase 24 U/L (0-32); Blood Urea Nitrogen 17 mg/dL (6-20); Calcium 9.0 mg/dL (8.5-10.5); Carbon Dioxide 24 mmol/L (22-29); Chloride 106 mmol/L (98-107); Globulin 2.5 g/dL (1.3-4.6); Glucose 86 mg/dL (65-115); Osmolality Calculated 295 mOsm/kg (285-295); Potassium 4.0 mmol/L (3.5-5.1); Sodium 142 mmol/L (136-145); Total Protein 7.1 g/dL (6.6-8.7)
== END 2025-08-27 12:57 | disposition home or self-care (01) ==
LOC: LAB 12:59
PROVIDERS: PCP Nurse Practitioner Family; Visit Provider Internal Medicine
DX: R13.10 Dysphagia, unspecified (principal); E06.3 Autoimmune thyroiditis; E03.9 Hypothyroidism, unspecified; R23.2 Flushing; R49.0 Dysphonia
CPT/HCPCS: 36415; 80053

== ENCOUNTER → 2025-08-29 08:10 | Outpatient (BNVA) | payer MEDICAID, SELFPAY | PROVIDERS: PCP Nurse Practitioner Family; Visit Provider Internal Medicine Endocrinology, Diabetes & Metabolism | DX: E11.9 Type 2 diabetes mellitus without complications (principal); E03.9 Hypothyroidism, unspecified | CPT/HCPCS: 80053; 82533; 85025 ==